=== PATIENT | female | born 2000 | race African-American/Black ===

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

== ENCOUNTER 2023-07-21 08:39 | Emergency (ER) | payer MEDICAID ==
[~2023-07-21] VITALS: Ht 170.2 cm; Wt 66.0 kg
[2023-07-21 08:40] VITALS: PULSE 89
[2023-07-21 08:48] VITALS: BP 105/75; RESP 16; TEMP 97.8; O2SAT 98
== END 2023-07-21 11:19 | disposition left against medical advice (07) ==
LOC: ER 08:39
DX: J02.0 Streptococcal pharyngitis (principal); Z53.21 Procedure and treatment not carried out due to patient leaving prior to being seen by health care provider
CPT/HCPCS: 99281